=== PATIENT | male | born 1940 | race Caucasian/White ===

== ENCOUNTER 2022-09-22 19:58 | Outpatient (CLI) | payer MEDICARE, OTHER | END 2022-09-22 23:59 | disposition critical access hospital (66) | LOC: EMS 19:58 | DX: R42 Dizziness and giddiness (principal); I95.9 Hypotension, unspecified; R51.9 Headache, unspecified; W18.39XA Other fall on same level, initial encounter; Y92.009 Unspecified place in unspecified non-institutional (private) residence as the place of occurrence of the external cause | CPT/HCPCS: A0425; A0427 ==

== ENCOUNTER 2022-09-22 20:35 | Emergency (ER) | payer MEDICARE, OTHER ==
[2022-09-22] MEDS ORDERED: SODIUM CHLORIDE 0.9% 1,000 ML IV STA (20:44)
[2022-09-22 21:00] LABS: BASOPHILS % (AUTO) 0.4 %; EOSINOPHILS % (AUTO) 0.4 %; HCT - HEMATOCRIT 36.3 % (42.0-52.0); HGB - HEMOGLOBIN 11.7 g/dL (14.0-18.0); LYMPHOCYTES # (AUTO) 2.4 10^3/uL (1.5-3.5); LYMPHOCYTES % (AUTO) 34.2 %; MEAN CORPUSCULAR HEMOGLOBIN 30.5 pg (27.0-31.0); MEAN CORPUSCULAR HGB CONC 32.2 g/dL (32.0-36.0); MEAN CORPUSCULAR VOLUME 94.8 fL (80.0-94.0); MEAN PLATELET VOLUME 11.5 fL (7.4-11.4); MONOCYTES % (AUTO) 13.7 %; NEUTROPHILS # (AUTO) 3.6 10^3/uL (1.5-6.6); NEUTROPHILS % (AUTO) 51.2 %; PLT - PLATELET COUNT 173 10^3/uL (130-450); RED BLOOD COUNT 3.83 10^6/uL (4.70-6.10); RED CELL DISTRIBUTION WIDTH 15.6 % (12.0-15.0); WHITE BLOOD COUNT 7.1 x10^3/uL (4.8-10.8)
[2022-09-22 21:11] LABS: ALBUMIN 2.9 g/dL (3.2-5.5); ALBUMIN/GLOBULIN RATIO 0.7 (1.0-2.2); BILIRUBIN,TOTAL 0.7 mg/dL (0.2-1.0); CALCIUM 8.3 mg/dL (8.5-10.3); CREATININE 1.7 mg/dL (0.6-1.2); POTASSIUM 4.1 mmol/L (3.5-5.0); TOTAL PROTEIN 7.3 g/dL (6.7-8.2)
--- NOTE | 2022-09-22 21:17 | CT Report ---
PROCEDURE: HEAD WO INDICATIONS: head injury TECHNIQUE: Noncontrast 4.5 mm thick angled axial sections acquired from the foramen magnum to the vertex. For r adiation dose reduction, the following was used: automated exposure control, adjustment of mA and/or kV according to patient size. COMPARISON: CT head 06/27/2015. FINDINGS: Image quality: Excellent. CSF spaces: There is mild cerebral volume loss with prominence of the ventricles and sulci. Basal ci sterns are patent. No extra-axial fluid collections. Brain: No intracranial hemorrhage, mass, or mass effect. Javier-white matter interface is preserved. T here are subcortical and periventricular white matter hypodensities consistent with mild chronic smal l vessel ischemic changes. Skull and face: Calvarium and visualized facial bones are intact, without suspicious lesions. Sinuses: Visualized sinuses and mastoids are clear. IMPRESSION: 1. No acute intracranial abnormality. Reviewed by: Norman Barnard MD on 09/22/2022 9:16 PM PDT Approved by: Norman Barnard MD on 09/22/2022 9:16 PM PDT Station ID: [id number]
--- NOTE | 2022-09-22 21:18 | XRAY Report ---
PROCEDURE: Chest 1 View X-Ray INDICATIONS: weakness TECHNIQUE: One view of the chest was acquired. COMPARISON: Chest x-ray 03/22/2016. FINDINGS: Surgical changes and devices: None. Lungs and pleura: No acute consolidation. There is pleural thickening laterally in the right hemithor ax. No pleural effusions or pneumothorax. Mediastinum: Mediastinal contours appear normal. Heart size is normal. Bones and chest wall: There are healed right rib fractures noted. No suspicious bony lesions. [place] ing soft tissues appear unremarkable. IMPRESSION: No acute cardiopulmonary disease. Reviewed by: Norman Barnard MD on 09/22/2022 9:17 PM PDT Approved by: Norman Barnard MD on 09/22/2022 9:17 PM PDT Station ID: [id number]
--- NOTE | 2022-09-22 21:24 | ED Physician Documentation ---
History of Present Illness - Stated complaint Stated Complaint: GLF - Chief complaint Chief Complaint: Neuro - History obtained from History obtained from: Patient, Family, EMS - Additonal information Additional information: Patient is an 82-year-old male presenting for evaluation of near syncope and head injury. Patient was standing up when he started feeling lightheaded. He fell to his knees and then fell back hitting his head. There was no LOC. He is not on any blood thinners. Per EMS he was initially hypotensive with systolics in the 70s. They initiated an IV and IV fluids.Per EMS and family patient has had some alcohol this evening. Patient states he has had approximately 4 ounces of alcohol in the last several hours. Per family he does not drink much water. 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 He denies any pain. Denies fever, chest pain, abdominal pain, difficulty breathing.Family reports had a similar episode in January 2022. Review of Systems Constitutional: denies: Fever Cardiac: denies: Chest pain / pressure Respiratory: denies: Dyspnea GI: denies: Abdominal Pain Musculoskeletal: denies: Back pain Neurologic: reports: Head injury. denies: Syncope PD PAST MEDICAL HISTORY - Past Medical History Cardiovascular: Hypertension, High cholesterol Respiratory: COPD, Sleep apnea GI: GERD - Past Surgical History Past Surgical History: Yes Ortho: Rotator cuff repair - Present Medications Home Medications: Ambulatory Orders Medication Instructions Recorded Confirmed Simvastatin 40 tab PO DAILY 06/27/15 09/22/22 Fluticasone [Flonase] 2 sprays MIRYAM DAILY 09/22/22 09/22/22 Fosinopril Sodium 40 mg PO 09/22/22 Lisinopril [Zestril] 30 mg PO DAILY 09/22/22 09/22/22 Omeprazole Magnesium 20 mg PO DAILY 09/22/22 09/22/22 Tamsulosin HCl [Flomax] 0.4 mg PO DAILY 09/22/22 09/22/22 Umeclidinium Brm/Vilanterol Tr 1 each IH DAILY 09/22/22 09/22/22 [Anoro Ellipta 62.5-25 Mcg INH] amLODIPine [Norvasc] 5 mg PO DAILY 09/22/22 09/22/22 - Allergies Allergies/Adverse Reactions: Allergies Allergy/AdvReac Type Severity Reaction Status Date / Time No Known Drug Allergies Allergy Verified 09/22/22 20:39 - Social History Does the pt smoke?: No Smoking Status: Former smoker Does the pt drink ETOH?: Yes Does the pt have substance abuse?: No - Immunizations Immunizations are current?: Yes - POLST Patient has POLST: No PD ED PE NORMAL - General General: Alert and oriented X 3, No acute distress, Well developed/nourished - HEENT HEENT: Atraumatic, PERRL, EOMI, Moist mucous membranes, Pharynx benign - Neck Neck: Supple, no meningeal sign, No bony TTP, C-Spine cleared by NEXUS criteria - Cardiac Cardiac: RRR, No murmur - Respiratory Respiratory: No respiratory distress, Clear bilaterally - Abdomen Abdomen: Normal bowel sounds, Soft, Non tender, Non distended - Derm Derm: Warm and dry - Extremities Extremities: No deformity, No edema - Neuro Neuro: Alert and oriented X 3, supervisor roving department 2-12 intact, No motor deficit, No sensory deficit, Normal speech Eye Opening: Spontaneous Motor: Obeys Commands Verbal: Oriented GCS Score: 15 Results - Vitals Vitals: Vital Signs - 24 hr 09/22/22 09/22/22 09/22/22 20:39 21:17 21:43 Temperature 36.5 C Heart Rate 68 67 Heart Rate [ 82 Sitting] Heart Rate [ 85 Standing] Heart Rate [ 68 Supine] Respiratory 22 21 Rate Blood Pressure 122/66 133/63 H Blood Pressure 98/52 L [Sitting] Blood Pressure 106/57 L [Standing] Blood Pressure 107/68 [Supine] O2 Saturation 97 99 09/22/22 22:24 Temperature Heart Rate 74 Heart Rate [ Sitting] Heart Rate [ Standing] Heart Rate [ Supine] Respiratory 22 Rate Blood Pressure 148/72 H Blood Pressure [Sitting] Blood Pressure [Standing] Blood Pressure [Supine] O2 Saturation 98 Oxygen O2 Source Room air - EKG (time done) 2107 EKG releavant findings:: EKG personally interpreted by author of this note. Relevant findings are: Rate 67, normal sinus rhythm, no STEMI, motion artifact at the baseline Rate: Rate (enter#) (67) Rhythm: NSR Intervals: No: Prolonged QT Ischemia: No: ST elevation c/w ischemia Compare to prior EKG: Old EKG unavailable - Labs Labs: Laboratory Tests 09/22/22 09/22/22 09/22/22 20:53 20:53 21:46 WBC 7.1 RBC 3.83 L Hgb 11.7 L Hct 36.3 L MCV 94.8 H MCH 30.5 MCHC 32.2 RDW 15.6 H Plt Count 173 MPV 11.5 H Neut # (Auto) 3.6 Lymph # (Auto) 2.4 [place] # (Auto) 1.0 Eos # (Auto) 0.0 Baso # (Auto) 0.0 Absolute Nucleated RBC 0.00 Nucleated RBC % 0.0 Sodium 128 L Potassium 4.1 Chloride 97 L Carbon Dioxide 24 Anion Gap 7.0 BUN 29 H Creatinine 1.7 H Estimated GFR (MDRD) 39 L Glucose 92 Calcium 8.3 L Total Bilirubin 0.7 AST 44 H ALT 42 Alkaline Phosphatase 77 Total Protein 7.3 Albumin 2.9 L Globulin 4.4 H Albumin/Globulin Ratio 0.7 L Lipase 48 Urine Color YELLOW Urine Clarity CLEAR Urine pH 5.0 Ur Specific [place] 1.010 Urine Protein NEGATIVE Urine Glucose (UA) NEGATIVE Urine Ketones NEGATIVE Urine Occult Blood NEGATIVE Urine Nitrite NEGATIVE Urine Bilirubin NEGATIVE Urine Urobilinogen 0.2 (NORMAL) Ur Leukocyte Esterase NEGATIVE Ur Microscopic Review NOT INDICATED Urine Culture Comments NOT INDICATED PD Medical Decision Making - ED course Complexity details: reviewed results, re-evaluated patient, d/w patient, d/w family () ED course: Patient is an 82-year-old male presenting for evaluation of near syncope with slight head injury. Noted to be initially hypotensive which improved with IV fluids. Patient has a normal neuro exam. He is not on blood thinners. EKG demonstrates a normal sinus rhythm. Labs including CBC, chemistries and urinalysis were obtained and reviewed.Mild hyponatremia of 128, creatinine of 1.7. Mild anemia. Labs from [facility] on 09/10/2022 with a sodium of 131 and creatinine of 1.1, Hemoglobin 12.7. Patient appears to have had a similar presentation in January 2022 at which time he was admitted to [facility] for Hypotension and KANDACE Related to dehydration and ETOH use And a UTI. Chest x-ray which I reviewed is negative for signs of effusion or pneumonia, with normal heart size.CT head is negative for bleed. Orthostatics were checked and patient did have a slight increase in his heart rate although less than 20 bpm. He had an additional 800 cc of IV fluids that still needed to be infused after orthostatics were checked. After 2 L of IV fluids (1 from EMS and when here) patient is feeling much better. He is able to ambulate here without any difficulty and does not feel lightheaded or dizzy. Patient was counseled regarding his EtOH use and need to continue with hydration with water. I also advised him to hold his blood pressure medication until he is seen for close follow-up with his PCP. Patient is advised on need for close follow-up as well as concerning symptoms to return for. Departure - Departure Disposition: 01 Home, Self Care Clinical Impression: Near syncope, Orthostatic lightheadedness, KANDACE (acute kidney injury), Hyponatremia, Head injury Condition: Stable Instructions: ED Head Injury Closed, ED Hypotension Orthostatic, ED Insufficiency Renal Comments: Your symptoms today are likely related to dehydration causing your blood pressure to be low as well as your kidney labs to be abnormal. Please make sure you are staying hydrated with water. I would consider reducing your alcohol intake. Please hold your blood pressure medication until you are seen by your PCP for close follow-up.I would recommend close follow-up in the next week for your symptoms. If you develop any new or worsening symptoms please return to the emergency department. Discharge Date/Time: 09/22/22 22:53
[2022-09-22 21:57] LABS: BILIRUBIN,URINE NEGATIVE (NEGATIVE); GLUCOSE, URINE (UA) NEGATIVE (NEGATIVE); KETONES,URINE (UA) NEGATIVE (NEGATIVE); LEUKOCYTE ESTERASE, URINE NEGATIVE (NEGATIVE); NITRITE,URINE NEGATIVE (NEGATIVE); OCCULT BLOOD,URINE NEGATIVE (NEGATIVE); PROTEIN,URINE NEGATIVE (NEGATIVE); UROBILINOGEN,URINE 0.2 (NORMAL) E.U./dL (NORMAL)
[2022-09-22 21:58] LABS: CLARITY,URINE CLEAR (CLEAR)
[2022-09-22 22:30] VITALS: BP 148/72
== END 2022-09-22 22:53 | disposition home or self-care (01) ==
LOC: EDUNIT# → ED 20:35
DX: S09.90XA Unspecified injury of head, initial encounter (principal); W18.30XA Fall on same level, unspecified, initial encounter; R55 Syncope and collapse; R42 Dizziness and giddiness; N17.9 Acute kidney failure, unspecified; E87.1 Hypo-osmolality and hyponatremia; I10 Essential (primary) hypertension; E78.00 Pure hypercholesterolemia, unspecified; J44.9 Chronic obstructive pulmonary disease, unspecified; Z79.899 Other long term (current) drug therapy; Z87.891 Personal history of nicotine dependence
CPT/HCPCS: 36415; 80053; 81001; 81003; 83690; 85025; 87086; 93005; 96360; 99284

== ENCOUNTER 2023-07-30 12:53 | Outpatient (CLI) | payer MEDICARE, OTHER | END 2023-07-30 23:59 | disposition EMS.NT | LOC: EMS 12:53 | DX: R29.6 Repeated falls (principal) ==